=== PATIENT | female | born 1980 | race Caucasian/White ===

== ENCOUNTER 2016-11-15 20:55 | Emergency (ER) | payer MEDICAID ==
[~2016-11-15 20:55] MED LIST: COLACE100 M1 PO; NO HOME MEDS; NORCO 5-325 TA1 EACH PO; NORCO 5/325 TAB1 TAB PO; PHENERGAN25 MG PO; TYLENOL500 MG PO; ZITHROMAX250 M1 PO
[2016-11-15] MEDS ORDERED: LAMICTAL100 M2 PO (23:55)
[2016-11-15] MEDS ORDERED: REXULTI1 MG PO (23:55)
== END 2016-11-16 02:00 ==
LOC: EDMED 20:55
DX: S92.521A Displaced fracture of middle phalanx of right lesser toe(s), initial encounter for closed fracture (principal); Z87.442 Personal history of urinary calculi; Z88.2 Allergy status to sulfonamides; Z98.890 Other specified postprocedural states; W23.0XXA Caught, crushed, jammed, or pinched between moving objects, initial encounter
CPT/HCPCS: J1885